=== PATIENT | female | born 1980 | race Caucasian/White ===

== ENCOUNTER → 2020-05-16 | Emergency (ER) | payer OTHER ==
[~2020-05-16] VITALS: Ht 160 cm; Wt 94.3 kg
[~2020-05-16] MED LIST: CLONAZEPAM0.5 MG; CLOTRIMAZOLE-BE15 GM TOP; DEPAKOTE ER250 MG; DEPAKOTE ER500 MG; DICLOFENAC SODI75 MG PO; RESTORIL7.5 MG; RISPERDAL0.5 MG
== END | disposition left against medical advice (07) ==
LOC: ER 01:55
DX: Z53.21 Procedure and treatment not carried out due to patient leaving prior to being seen by health care provider (principal)

== ENCOUNTER 2020-06-01 00:41 | Emergency (ER) | payer OTHER ==
[~2020-06-01] VITALS: Ht 160 cm; Wt 94.3 kg
[~2020-06-01 00:41] MED LIST changes: -CLOTRIMAZOLE-BE15 GM TOP; -DICLOFENAC SODI75 MG PO
[2020-06-01] MEDS ORDERED: CLOTRIMAZOLE-BE15 GM TOP (01:56)
[2020-06-01] MEDS ORDERED: DICLOFENAC SODI75 MG PO (01:56)
== END 2020-06-01 02:08 | disposition home or self-care (01) ==
LOC: ER 00:41
DX: M54.5 Low back pain (principal)

== ENCOUNTER 2025-07-13 09:06 | Emergency (ER) | payer OTHER ==
[~2025-07-13] VITALS: Ht 160 cm; Wt 81.6 kg
[~2025-07-13 09:06] MED LIST changes: +CLOTRIMAZOLE-BE15 GM TOP; +DICLOFENAC SODI75 MG PO
[2025-07-13] MEDS ORDERED: KAPSPARGO SPRIN25 MG PO (09:30)
[2025-07-13] MEDS ORDERED: SIMVASTATIN5 MG PO (09:30)
== END 2025-07-13 15:14 | disposition home or self-care (01) ==
LOC: ER 09:06
DX: T88.7XXA Unspecified adverse effect of drug or medicament, initial encounter (principal)